=== PATIENT | male | born 1960 | race Caucasian/White ===

== ENCOUNTER 2023-09-18 11:13 | Emergency (ER) | payer MEDICARE, OTHER ==
[2023-09-18 12:29] LABS: LIPASE 68 U/L (12-53)
[2023-09-18 12:31] LABS: ALBUMIN 4.2 G/DL (3.2-5.2); ALKALINE PHOSPHATASE 62 U/L (46-116); ALT/SGPT 43 U/L (7.0-40); AST/SGOT 39 U/L (<34); BILIRUBIN,DIRECT 0.2 MG/DL (<0.4); BILIRUBIN,TOTAL 0.5 MG/DL (0.3-1.2); TOTAL PROTEIN 7.4 G/DL (5.7-8.2)
[2023-09-18 12:33] LABS: BASO % 0.3 % (0.0-1.0); HEMOGLOBIN 16.5 g/dl (13.5-17.5); LYMPH # 2.2 10^3/uL (1.5-5.0); LYMPH % 61.4 % (24.0-44.0); MEAN CORPUSCULAR HEMOGLOBIN 30.3 pg (27.0-33.0); MEAN CORPUSCULAR HGB CONC 33.7 g/dl (32.0-36.5); MEAN CORPUSCULAR VOLUME 90.1 fl (80.0-96.0); MONO # 0.4 10^3/uL (0.0-0.8); MONO % 10.4 % (2.0-8.0); NEUTROPHILS % 27.6 % (36.0-66.0); PLATELET COUNT, AUTOMATED 241 10^3/uL (150-450); RED BLOOD COUNT 5.44 10^6/uL (4.30-6.10); WHITE BLOOD COUNT 3.6 10^3/uL (4.0-10.0)
[2023-09-18 12:42] LABS: RSV AMPLIFICATION NEGATIVE (NEGATIVE)
[2023-09-18] MEDS ORDERED: fentaNYL 100 MCG/2 ML INJECTION IV ONE (13:15)
[2023-09-18] MEDS ORDERED: ONDANSETRON 4MG 2ML VIAL IV ONE (13:15)
[2023-09-18] MEDS ORDERED: NS 1,000 ML IV ONE (13:15)
[2023-09-18] MEDS ORDERED: KETOROLAC 30 MG/ML 1ML VIAL IV ONE (13:15)
[2023-09-18] MEDS ORDERED: ISOVUE-370 76% 100ML VIAL As Ordered ONE (13:31)
[2023-09-18 15:13] LABS: BLOOD UREA NITROGEN 19 MG/DL (9-23); CALCIUM LEVEL 9.3 MG/DL (8.3-10.6); CARBON DIOXIDE LEVEL 26 MMOL/L (20-31); CHLORIDE LEVEL 103 MMOL/L (98-107); CK-MB VALUE MASS < 1.0 NG/ML (<3.6); CREATININE FOR GFR 1.03 MG/DL (0.70-1.30); GLOMERULAR FILTRATION RATE > 60.0 (>49); GLUCOSE, FASTING 100 MG/DL (74-106); POTASSIUM SERUM 4.7 MMOL/L (3.5-5.1); SODIUM LEVEL 138 MMOL/L (136-145)
[2023-09-18 15:14] LABS: CPK CREATINE PHOSPHOKINASE 166 U/L (46-171)
[2023-09-18 15:21] LABS: APPEARANCE, URINE CLEAR (CLEAR); BACTERIA, URINE AUTO NEGATIVE (NEGATIVE); BILIRUBIN, URINE AUTO NEGATIVE (NEGATIVE); BLOOD, URINE BLOOD NEGATIVE (NEGATIVE); COLOR, URINE YELLOW (YELLOW); GLUCOSE, URINE (UA) AUTO NEGATIVE (NEGATIVE); KETONE, URINE AUTO NEGATIVE (NEGATIVE); LEUKOCYTE ESTERASE, URINE AUTO NEGATIVE (NEGATIVE); MUCUS, URINE LARGE (NEGATIVE); NITRITE, URINE AUTO NEGATIVE (NEGATIVE); PROTEIN, URINE AUTO NEGATIVE (NEGATIVE); RBC, URINE AUTO 4 /HPF (0-3); SQUAMOUS EPITHELIAL CELL UR AU 0 /HPF (0-6); UROBILINOGEN, URINE AUTO 0.2 mg/dL (0.0-2.0); WBC, URINE AUTO 1 /HPF (0-3)
[2023-09-18 15:23] LABS: SPECIFIC GRAVITY URINE AUTO >1.060 (1.002-1.035)
[2023-09-18] MEDS ORDERED: ONDA4TAB6 PO (16:31)
[2023-09-18 16:57] VITALS: BP 132/80; TEMP 99; O2SAT 96
== END 2023-09-18 17:00 | disposition home or self-care (01) ==
LOC: M ED 11:13
DX: U07.1 COVID-19 (principal); R07.89 Other chest pain; R10.9 Unspecified abdominal pain; R00.1 Bradycardia, unspecified; I44.4 Left anterior fascicular block; Z88.1 Allergy status to other antibiotic agents; Z79.83 Long term (current) use of bisphosphonates
CPT/HCPCS: 71275; 74177; 80047; 80048; 80076; 81001; 82550; 82553; 83690; 84484; 85025; 87631; 93005; 96361; 96374; 96375; 99284; J1885; J2405; J3010; Q9967